=== PATIENT | female | born 1975 | race African-American/Black ===

== ENCOUNTER 2016-11-11 16:45 | Emergency (ER) | payer OTHER ==
[~2016-11-11] VITALS: Ht 170.2 cm; Wt 83.9 kg
[~2016-11-11 16:45] MED LIST: IBUPROFEN600 MG ORAL; TRAMADOL HCL50 MG ORAL
[2016-11-11 16:58] VITALS: BP 125/81
--- NOTE | 2016-11-11 19:08 | Emergency Room Report ---
History of Present Illness General Chief Complaint: Multiple Trauma/Fall Source: Patient Present Illness HPI 41-year-old female presents emergency department complaining of right shoulder pain, low back pain that radiates into the right upper buttock, and right knee pain status post slip and fall at work. Patient denies hitting her head she denies loss of consciousness. Patient also reports soft tissue tenderness, and tightness in the muscles. Patient reports her pain is 10 out of 10 in severity. Patient reports swelling to the right knee she denies instability. She denies previous injury to the affected extremities. Recent states pain is exacerbated upon movement of the right shoulder and walking. Patient denies bruising. Denies numbness tingling or loss of sensation or gross motor movements of the extremities, incontinence of bowel or bladder. Denies CP, Palpitations, LOC, AMS, dizziness, Changes in Vision, Sensation, paresthesias, or a sudden severe headache. Allergies: Coded Allergies: No Known Allergies (Unverified , 11/29/15) Patient History Past Medical History: see triage record Past Surgical History: none Pertinent Family History: none Last Menstrual Period: IUD Now: No Reviewed Nursing Documentation: PMH: Agreed, PSxH: Agreed Nursing Documentation-PMH Past Medical History: No Stated History Review of Systems All Other Systems: negative except mentioned in HPI Physical Exam Vital Signs Date Time Temp Pulse Resp B/P Pulse Ox O2 Delivery O2 Flow Rate FiO2 11/11/16 16:58 97.9 74 18 125/81 98 Room Air Sp02 EP Interpretation: reviewed, normal General Appearance: no apparent distress, alert, GCS 15, non-toxic Head: normocephalic, atraumatic Eyes: bilateral eye PERRL, bilateral eye normal inspection ENT: hearing grossly normal, normal pharynx, no angioedema, normal voice Neck: full range of motion, supple/symm/no masses Respiratory: chest non-tender, lungs clear, normal breath sounds, speaking full sentences Cardiovascular #1: regular rate, rhythm, no edema Musculoskeletal: back normal, gait/station normal, normal range of motion, tender - TTP to the midline and right paraspinal areas of the lumbar spine, ttp to the upper glute, no bruising noted, ttp to the lateral right shoulder FROM with pain, no weakness, no bruising or deformity, and ttp to the right knee with notable swelling, no erythema, no increased laxity, negative anterior and posterior drawer signs, FROM. Neurologic: alert, oriented x3, responsive, motor strength/tone normal, sensory intact, normal gait, speech normal Psychiatric: judgement/insight normal, memory normal, mood/affect normal, no suicidal/homicidal ideation Skin: normal color, no rash, warm/dry, well hydrated Medical Decision Making PA Attestation Dr. Schaefer is my supervising Physician whom patient management has been discussed with. Diagnostic Impression: Primary Impression: Knee effusion, right Additional Impressions: Right knee sprain Qualified Codes: S83.91XA - Sprain of unspecified site of right knee, initial encounter Contusion of soft tissue Muscle strain Fall Qualified Codes: W19.XXXA - Unspecified fall, initial encounter ER Course 41-year-old female presents emergency department complaining of right shoulder pain, low back pain that radiates into the right upper buttock, and right knee pain status post slip and fall at work. Patient denies hitting her head she denies loss of consciousness. Patient also reports soft tissue tenderness, and tightness in the muscles. Patient reports her pain is 10 out of 10 in severity. Patient reports swelling to the right knee she denies instability. She denies previous injury to the affected extremities. Recent states pain is exacerbated upon movement of the right shoulder and walking. Patient denies bruising. Denies numbness tingling or loss of sensation or gross motor movements of the extremities, incontinence of bowel or bladder. Denies CP, Palpitations, LOC, AMS, dizziness, Changes in Vision, Sensation, paresthesias, or a sudden severe headache. Ddx considered but are not limited to Fracture, dislocation, contusion, Sprain/ Strain/Spasm. Vital signs: are WNL, pt. is afebrile H&PE are most consistent with soft tissue contusions, right knee effusion and sprain, and right shoulder contusion/sprain, will r/o fractures with imaging. ORDERS: - X-ray Right Shoulder 3 views - negative for fx, Dislocation, or significant soft tissue injury, per preliminary read in ED by Dr. Schaefer- interpretation is scribed by PA. - X-ray Right Knee 3 views - negative for fx, Dislocation, or significant soft tissue injury, per preliminary read in ED by Dr. Schaefer- interpretation is scribed by PA. - X-ray Lumbar Spine 3 views - negative for fx, Dislocation, or significant soft tissue injury, per preliminary read in ED by Dr. Schaefer- interpretation is scribed by PA. ED INTERVENTIONS: - 600mg IBU PO - Saeed wrap applied to the right knee by finishing technician. Pt. remains neurovascularly intact. DISCHARGE: At this time pt. is stable for d/c to home. Will provide printed patient care instructions, and any necessary prescriptions. Care plan and follow up instructions have been discussed with the patient prior to discharge. Last Vital Signs Date Time Temp Pulse Resp B/P Pulse Ox O2 Delivery O2 Flow Rate FiO2 11/11/16 16:58 97.9 74 18 125/81 98 Room Air Disposition: HOME, SELF-CARE Condition: Stable Scripts Ibuprofen* (MOTRIN*) 600 Mg Tablet 600 MG ORAL THREE TIMES A DAY, #30 TAB 0 Refills Prov: Sweta Nails 11/11/16 Cyclobenzaprine Hcl* (FLEXERIL*) 10 Mg Tablet 10 MG ORAL THREE TIMES A DAY for 7 Days, #21 TAB Prov: Sweta Nials 11/11/16 Carisoprodol* (SOMA*) 350 Mg Tablet 350 MG PO QHS, #1 TAB Prov: Sweta Nails 11/11/16 Referrals: NON PHYSICIAN (PCP) Departure Forms: Return to Work Return to Work Date: Nov 15, 2016 Work Restrictions: No Heavy Lifting, No Prolonged Standing Other Restrictions: light duty x 1 week. Return to Full Activity: Nov 22, 2016 Patient Instructions: Contusion, [id number], Knee Effusion, [id number] Additional Instructions: Take medications as directed. Follow up with PCP in 3-5 days Return sooner to ED if new symptoms occur, or current symptoms become worse. Do not drink alcohol, drive, or operate heavy machinery while taking muscle relaxers as this may cause drowsiness. - Please note that this Emergency Department Report was dictated using [employer] technology software, occasionally this can lead to erroneous entry secondary to interpretation by the dictation equipment. Sweta Nails Nov 11, 2016 19:08
[2016-11-11] MEDS ORDERED: SOMA350 MG PO (19:16)
[2016-11-11] MEDS ORDERED: CYCLOBENZAPRINE10 MG ORAL (19:16)
[2016-11-11] MEDS ORDERED: IBUPROFEN600 MG ORAL (19:16)
[2016-11-11 19:55] VITALS: BP_SYST 125; BP_SYST 130; BP_DIAS 73; BP_DIAS 81
--- NOTE | 2016-11-12 10:10 | Diagnostic Imaging Report ---
Indication: PAIN Technique: 3 views of the right shoulder Comparison: none Findings: Tiny ossific density projects at the superior aspect of the shoulder joint. No acute fractures. No dislocations. Joint spaces are preserved. Impression:Tiny intra-articular loose body not excludable. No acute process
--- NOTE | 2016-11-12 10:11 | Diagnostic Imaging Report ---
Indication: PAIN Technique: 3 views of the lumbar spine Comparison: None Findings:Bony alignment is normal. Vertebral body heights are preserved. Disc spaces are preserved. There is an intrauterine device in place. Impression:Negative
--- NOTE | 2016-11-12 10:27 | Diagnostic Imaging Report ---
Indication: PAIN Technique: 3 views of the right knee Comparison: None Findings:No acute fractures. No dislocations. No suprapatellar effusion. Impression:Negative
== END 2016-11-11 19:57 | disposition home or self-care (01) ==
LOC: EMR 17:37
DX: S83.91XA Sprain of unspecified site of right knee, initial encounter (principal); M25.461 Effusion, right knee; W01.0XXA Fall on same level from slipping, tripping and stumbling without subsequent striking against object, initial encounter; Y92.531 Health care provider office as the place of occurrence of the external cause; Y99.0 Civilian activity done for income or pay; M25.511 Pain in right shoulder; M54.5 Low back pain; Z97.5 Presence of (intrauterine) contraceptive device
CPT/HCPCS: 29530; 72020; 99284